=== PATIENT | male | born 1930 | race Hispanic/Latino ===

== ENCOUNTER 2018-06-18 09:56 | Outpatient (CLI) | payer MEDICARE, OTHER | END 2018-06-18 09:57 | disposition home or self-care (01) | LOC: LAB 09:56 ==

== ENCOUNTER 2018-08-31 08:36 | Emergency (ER) | payer MEDICARE, OTHER ==
[2018-08-31 08:36] VITALS: BMI 27.9
[2018-08-31 08:44] VITALS: TEMP 98
[2018-08-31] MEDS ORDERED: TDAP Vaccine 0.5 mL Syr IM ONE (09:01)
--- NOTE | 2018-08-31 09:08 | ED PDOC ---
Arrival/HPI - General Chief Complaint: Trauma Time Seen by Provider: 08/31/18 08:37 Historian: Patient, Spouse - History of Present Illness Narrative History of Present Illness (Text): 08/31/18 09:09 87 year old male, with past medical history of hypertension and CHF, presents to emergency department s/p fall out of his car prior to arrival. states he hit his head and does not seem to remember the incident. Patient denies any loss of consciousness, but reports soreness to bump on head and bruising on left knee. Patient also denies any fevers, chills, headache, dizziness, chest pain, shortness of breath, cough, abdominal pain, nausea, vomiting, diarrhea, back pain, neck pain, or any other complaints. Patient notes he is currently not on blood thinners but takes ecotrin and hypertension/thyroid medications. PMD: Time/Duration: Prior to Arrival Symptom Onset: Gradual Symptom Course: Unchanged Activities at Onset: Light Context: Tripped (out of car ) Past Medical History - Provider Review Nursing Documentation Reviewed: Yes - Tetanus Immunization Tetanus Immunization: Unknown - Cardiac Hx Congestive Heart Failure: Yes Hx Hypertension: Yes - Pulmonary Hx Pneumonia: Yes - Neurological Other/Comment: syncope 08/11/12 - Endocrine/Metabolic Hx Hypothyroidism: Yes - Musculoskeletal/Rheumatological Hx Falls: No - Genitourinary/Gynecological Hx Prostate Problems: Yes (had surgery) - Psychiatric Hx Depression: No Hx Emotional Abuse: No Hx Physical Abuse: No Hx Substance Use: No - Past Surgical History Past Surgical History: No Previous - Surgical History Other/Comment: prostate surgery to improve urine flow - Anesthesia Hx Anesthesia: Yes - Suicidal Assessment Feels Threatened In Home Enviroment: No Family/Social History - Physician Review Nursing Documentation Reviewed: Yes Family/Social History: Unknown Family HX Smoking Status: Never Smoked Hx Alcohol Use: No Hx Substance Use: No Hx Substance Use Treatment: No Allergies/Home Meds Allergies/Adverse Reactions: Allergies No Known Allergies Allergy (Verified 08/31/18 08:44) Home Medications: Home Meds Medication Instructions Recorded Confirmed Furosemide [Lasix] 40 mg PO DAILY 08/11/12 08/31/18 amLODIPine [Norvasc] 5 mg PO DAILY 08/31/18 08/31/18 Review of Systems - Physician Review All systems were reviewed & negative as marked: Yes - Review of Systems Constitutional: absent: Fevers Respiratory: absent: SOB, Cough Cardiovascular: absent: Chest Pain Gastrointestinal: absent: Abdominal Pain Genitourinary Male: absent: Frequency, Hematuria, Urinary Output Changes Musculoskeletal: absent: Back Pain, Neck Pain Skin: Other (bruising to left knee ) Neurological: Other (bump to head ). absent: Headache, Dizziness Physical Exam Vital Signs Reviewed: Yes Vital Signs Temp Pulse Resp BP Pulse Ox 08/31/18 08:41 98 F 74 18 156/84 H 96 Temperature: Afebrile Blood Pressure: Normal Pulse: Regular Respiratory Rate: Normal Appearance: Positive for: Well-Appearing, Non-Toxic, Comfortable Pain Distress: None Mental Status: Positive for: Alert and Oriented X 3 - Systems Exam Head: Present: Other (large hematoma to left muslim, slight bleeding and tenderness to palpation) Pupils: Present: PERRL Extroacular Muscles: Present: EOMI Conjunctiva: Present: Normal Mouth: Present: Moist Mucous Membranes Neck: Present: Normal Range of Motion. No: MIDLINE TENDERNESS Respiratory/Chest: Present: Clear to Auscultation, Good Air Exchange. No: Respiratory Distress, Accessory Muscle Use Cardiovascular: Present: Regular Rate and Rhythm, Normal S1, S2. No: Murmurs Abdomen: No: Tenderness, Distention, Peritoneal Signs Back: Present: Normal Inspection. No: CVA Tenderness, Pain with Leg Raise Upper Extremity: Present: Normal Inspection, Normal ROM. No: Cyanosis, Edema Lower Extremity: Present: Normal Inspection, Normal ROM, Other (excoriation to left knee). No: Edema Neurological: Present: GCS=15, CN II-XII Intact, Speech Normal Skin: Present: Warm, Dry, Normal Color. No: Rashes Psychiatric: Present: Alert, Oriented x 3, Normal Insight, Normal Concentration Medical Decision Making ED Course and Treatment: 08/31/18 09:22 Impression: 87 year old male presents to emergency department for head injury s/p fall out of his car. Plan: -- CT Cervical Spine -- CT Head -- X-ray left knee -- Reassess and disposition Prior Visits: Notes and results from previous visits were reviewed. Progress Notes: 08/31/18 10:34 CTH negative for intracranial bleeding. Larger frontotemporal contusion noted. CT c-spine pending. - RAD Interpretation Narrative RAD Interpretations (Text): 08/31/18 11:01 CT Head: IMPRESSION: No acute intracranial hemorrhage. Mild chronic periventricular white matter ischemic changes. Moderate generalized volume loss. Large left frontotemporal scalp contusion. CT Cervical Spine: IMPRESSION: No acute fractures. 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 Radiology Orders: 08/31/18 09:01 CERVICAL SPINE W/O CONTRAST [CT] Stat HEAD W/O CONTRAST [CT] Stat KNEE LEFT 2 VIEWS (AP & LAT) [RAD] Stat Business Segment Manager: Radiologist - Medication Orders Current Medication Orders: Tetanus/Reduced Diphtheria/Acell Pertussis (Boostrix Vaccine Inj) 0.5 ml IM .ONCE ONE Stop: 08/31/18 09:02 - Scribe Statement The provider has reviewed the documentation as recorded by the Scribe Edgar Zarate All medical record entries made by the Scribe were at my direction and personally dictated by me. I have reviewed the chart and agree that the record accurately reflects my personal performance of the history, physical exam, medical decision making, and the department course for this patient. I have also personally directed, reviewed, and agree with the discharge instructions and disposition. Disposition/Present on Arrival - Present on Arrival Any Indicators Present on Arrival: No History of DVT/PE: No History of Uncontrolled Diabetes: No Urinary Catheter: No History of Decub. Ulcer: No History Surgical Site Infection Following: None - Disposition Have Diagnosis and Disposition been Completed?: Yes Diagnosis: Contusion of head, Fall, Knee abrasion Disposition: HOME/ ROUTINE Disposition Time: 10:39 Patient Plan: Discharge Patient Problems: Current Active Problems Problem Status Onset Contusion of head Acute Fall Acute Knee abrasion Acute Condition: STABLE Discharge Instructions (ExitCare): Minor Head Injury (DC), Skin Abrasions (DC) Print Language: SYRIAC Additional Instructions: All medical record entries made by the Scribe were at my direction and personally dictated by me. I have reviewed the chart and agree that the record accurately reflects my personal performance of the history, physical exam, medical decision making, and the department course for this patient. I have also personally directed, reviewed, and agree with the discharge instructions and disposition. Please follow up with your PCP in 7 days Your contusion will go down over time. Referrals: Kaz Miller, [Primary Care Provider] - Follow up with primary Forms: [employer] (Khmer)
[2018-08-31 09:26] VITALS: RESP 16; O2SAT 95
--- NOTE | 2018-08-31 10:24 | CT ---
Date of service: 08/31/2018 PROCEDURE: CT HEAD WITHOUT CONTRAST. HISTORY: Status post fall with left temporal hematoma COMPARISON: Comparison made with prior CT scan of the brain dated 08/12/2014. TECHNIQUE: Axial computed tomography images were obtained through the head/brain without intravenous contrast. Radiation dose: Total exam DLP = 946.32 mGy-cm. This CT exam was performed using one or more of the following dose reduction techniques: Automated exposure control, adjustment of the mA and/or kV according to patient size, and/or use of iterative reconstruction technique. FINDINGS: HEMORRHAGE: No acute parenchymal, subarachnoid or extra-axial hemorrhage. BRAIN: Mild chronic periventricular white matter ischemic changes seen extending peripherally into the deep and to a lesser degree subcortical white matter both cerebral hemispheres. Moderate generalized volume loss. Mild vascular calcifications both carotid siphons VENTRICLES: No obstructive hydrocephalus. CALVARIUM: Calvarium intact. Large left frontotemporal scalp contusion. PARANASAL SINUSES: Partial opacification left chamber sphenoid sinus. MASTOID AIR CELLS: Unremarkable as visualized. No inflammatory changes. OTHER FINDINGS: None. IMPRESSION: No acute intracranial hemorrhage. Mild chronic periventricular white matter ischemic changes. Moderate generalized volume loss. Large left frontotemporal scalp contusion.
--- NOTE | 2018-08-31 10:56 | CT ---
Date of service: 08/31/2018 PROCEDURE: CT Cervical Spine without contrast HISTORY: Fall COMPARISON: None available. TECHNIQUE: Axial computed tomography images were obtained of the cervical spine without the use of intravenous contrast. Coronal and sagittal reformatted images were created and reviewed. Radiation dose: Total exam DLP = 702.98 mGy-cm. This CT exam was performed using one or more of the following dose reduction techniques: Automated exposure control, adjustment of the mA and/or kV according to patient size, and/or use of iterative reconstruction technique. FINDINGS: VERTEBRAE: No acute compression fractures no retropulsed fragments. Vertebral bodies exhibit relatively normal stature. There is mild reversal of the normal cervical lordosis which may be secondary to patient positioning gantry however underlying element muscle spasm may contribute.. Minimal anterior subluxation C2 over C3. DISCS/SPINAL CANAL/NEURAL FORAMINA: Mild to moderate multilevel degenerative spondylosis. At the C2-C3 level, there is minor disc space narrowing and subchondral cystic changes with small broad-based disc ridge complex that compresses the ventral surface of the thecal sac and appears to minimally flatten the ventral surface of the cord. Central canal slightly narrowed. Facets are hypertrophic left greater than right. Exit foramina are stenotic bilaterally. At the C3-C4 level, there is marked disc space narrowing with small to medium-sized broad-based disc ridge complex contiguous with hypertrophic uncovertebral joints. There is resultant mild central canal stenosis and cord compression. Facet joints are slightly overgrown. Exit foramina are stenotic bilaterally. Are stenotic at the C4-C5 level, there is marked disc space narrowing with endplate eburnation with moderate-sized broad-based disc ridge complex also contiguous with hypertrophic uncovertebral joints.. Changes result in moderate canal stenosis and cord compression. Exit foramina stenotic bilaterally. Similar changes seen at the C5-C6 and C6-C7 levels. PARASPINAL SOFT TISSUES: Unremarkable. OTHER FINDINGS: Mild biapical pleural thickening and adjacent parenchymal scarring. No evidence of apical pneumothorax. IMPRESSION: No acute fractures. Multilevel degenerative spondylosis with [id number] canal stenosis, cord compression and bilateral foraminal stenosis.
[2018-08-31 11:46] VITALS: BP 157/64; PULSE 70
--- NOTE | 2018-08-31 12:19 | RAD ---
Date of service: 08/31/2018 PROCEDURE: Left Knee Radiographs. HISTORY: Pain. COMPARISON: No prior study available for comparison TECHNIQUE: 2 views obtained. FINDINGS: BONES: Normal. No fracture. JOINTS: Minor degenerative osteoarthritis JOINT EFFUSION: Suspect trace joint effusion OTHER FINDINGS: There appears to be some mild subcutaneous infiltration-edema at the level of the patellar ligament possibly posttraumatic in origin. IMPRESSION: No evidence of acute displaced fracture nor dislocation. Minor degenerative osteoarthritis. Suspect anterior subcutaneous infiltration-edema the level of the patellar ligament
== END 2018-08-31 12:13 | disposition home or self-care (01) ==
LOC: ED 08:36
DX: S00.03XA Contusion of scalp, initial encounter (principal); S80.212A Abrasion, left knee, initial encounter; W18.39XA Other fall on same level, initial encounter; Z23 Encounter for immunization